=== PATIENT | female | born 1950 | race Caucasian/White ===

== ENCOUNTER → 2018-08-09 14:00 | Outpatient (CLI) | payer MEDICARE, OTHER, SELFPAY ==
[2018-08-09 15:52] LABS: Absolute Lymphocyte Count 3.09 X10^3/ul (0.83-4.51); Absolute Neutrophil Count 2.9 X10^3/uL (2.0-7.7); Basophil# 0.07 X10^3/uL; Eosinophil# 0.28 X10^3/uL; Eosinophils% 3.9 % (0-5); Hematocrit 42.5 % (37-47); Hemoglobin 13.7 g/dl (12.0-15.0); Lymphocyte # 3.09 X10^3/ul (4.0); Lymphocyte % 43.4 % (19-41); Mean Corp Hgb Conc 32.2 g/gl (32-36); Mean Corpuscular Hgb 29.6 pg (27.0-32.0); Mean Corpuscular Volume 91.8 fL (81-99); Monocyte# 0.77 X10^3/uL; Monocyte% 10.8 % (0-10); Neutrophil % 40.8 % (47-70); Platelet Count 329 K/mm3 (150-450); RBC Distribution Width CV 13.6 % (11.6-14.6); Red Blood Count 4.63 M/mm3 (4.2-5.4); White Blood Count 7.1 K/mm3 (4.4-11.0)
[2018-08-09 16:12] LABS: POSITIVE COUNT NO; POSITIVE DIFFERENTIAL NO; POSITIVE MORPHOLOGY NO
[2018-08-09 16:17] LABS: Anion Gap 9 (5-15); BUN 12 mg/dL (7-18); BUN/Creat Ratio 14.6 RATIO (10-20); Calcium,Total 8.6 mg/dL (8.5-10.1); Chloride 106 mmol/L (98-107); Creatinine, Serum 0.82 mg/dL (0.55-1.02); EST Glomerular Filtration Rate 73 mL/min (>60); Est Glom Filt Rate - Afr Amer 89 mL/min (>60); Glucose 100 mg/dL (74-106); Potassium 3.3 mmol/L (3.5-5.1); Sodium Level 141 mmol/L (136-145); Thyroid Stim Hormone (TSH) 1.54 uIU/mL (0.358-3.74)
== END ==
PROVIDERS: Family Provider Family Medicine; PCP Family Medicine; Visit Provider Family Medicine
DX: I10 Essential (primary) hypertension (principal); F32.9 Major depressive disorder, single episode, unspecified
CPT/HCPCS: 36415; 80048; 84443; 85025

== ENCOUNTER → 2019-03-18 14:28 | Outpatient (CLI) | payer MEDICARE, OTHER, SELFPAY ==
[2019-03-18 15:31] VITALS: BMI 27.8
== END ==
PROVIDERS: Family Provider Family Medicine; PCP Family Medicine; Referring Provider Physician Assistant Surgical; Visit Provider Physician Assistant Surgical
DX: R31.9 Hematuria, unspecified (principal)
CPT/HCPCS: 87077; 87086; 87088; 87186

== ENCOUNTER → 2019-03-28 17:12 | Outpatient (CLI) | payer MEDICARE, OTHER, SELFPAY ==
[2019-03-18 15:31] VITALS: BMI 27.8
[2019-03-28 17:38] LABS: Anion Gap 8 (5-15); BUN 16 mg/dL (7-18); BUN/Creat Ratio 17.5 RATIO (10-20); Chloride 107 mmol/L (98-107); Creatinine, Serum 0.91 mg/dL (0.55-1.02); EST Glomerular Filtration Rate 65 mL/min (>60); Est Glom Filt Rate - Afr Amer 78 mL/min (>60); Glucose 130 mg/dL (74-106); Magnesium 1.8 mg/dL (1.6-2.6); Potassium 3.3 mmol/L (3.5-5.1); Sodium Level 140 mmol/L (136-145)
== END ==
PROVIDERS: Family Provider Family Medicine; PCP Family Medicine; Referring Provider Family Medicine; Visit Provider Family Medicine
DX: E87.6 Hypokalemia (principal)
CPT/HCPCS: 36415; 80048; 83735

== ENCOUNTER → 2019-05-03 14:50 | Outpatient (CLI) | payer MEDICARE, OTHER, SELFPAY ==
[2019-03-18 15:31] VITALS: BMI 27.8
[2019-05-03 17:41] LABS: Anion Gap 8 (5-15); BUN 14 mg/dL (7-18); BUN/Creat Ratio 14.9 RATIO (10-20); Calcium,Total 9.3 mg/dL (8.5-10.1); Chloride 109 mmol/L (98-107); Creatinine, Serum 0.94 mg/dL (0.55-1.02); EST Glomerular Filtration Rate 63 mL/min (>60); Est Glom Filt Rate - Afr Amer 76 mL/min (>60); Glucose 148 mg/dL (74-106); Magnesium 1.8 mg/dL (1.6-2.6); Potassium 3.7 mmol/L (3.5-5.1); Sodium Level 139 mmol/L (136-145)
== END ==
LOC: LAB.FUTURE 14:51 → BFHLAB 14:52
PROVIDERS: Family Provider Family Medicine; PCP Family Medicine; Visit Provider Family Medicine
DX: E87.6 Hypokalemia (principal)
CPT/HCPCS: 36415; 80048; 83735

== ENCOUNTER 2019-12-22 12:12 | Emergency (ER) | payer MEDICARE, OTHER, SELFPAY ==
[2019-03-18 15:31] VITALS: BMI 27.8
[2019-12-22 12:13] VITALS: BP 116/35; PULSE 101; RESP 18; TEMP 36.3; O2SAT 93; BMI 26.6
--- NOTE | 2019-12-22 12:39 | EKG12_ITS ---
Test Reason : EPIGASTRIC PAIN Blood Pressure : / mmHG Vent. Rate : 108 BPM Atrial Rate : 108 BPM P-R Int : 178 ms QRS Dur : 076 ms QT Int : 358 ms P-R-T Axes : 069 -28 054 degrees QTc Int : 479 ms Sinus tachycardia Nonspecific ST abnormality Abnormal ECG Confirmed by KAMALA NICOLAS, NATALEE ([id number]), video effects editor GIOVANNA MONCADA ([id number]) on 12/26/2019 2:03:54 PM Referred By: [facility] Confirmed By:DREW WRAY MD
--- NOTE | 2019-12-22 12:42 | ED.DCSUM_ITS ---
- ER Visit Summary Date of Service: 12/22/19 Chief Complaint: Epigastric abdominal pain History of Present Illness: The patient is a 69 F which is her epigastric abdominal pain for 6 to 8 months. Initially was intermittent and now is been constant for 1 to 2 months. Worse with eating. Worse with supine. Better upright. No change with exertion. No chest pain. No shortness of breath. No melena. No fever. She is treated with omeprazole and said it did not seem to be working as well. Due to her symptoms her primary care physician wanted her to be evaluated. She has had an upper endoscopy in the past revealing reflux. She is had some nausea with it but currently no vomiting. No diarrhea. No constipation. No fever. No weight loss. No exertional symptoms and no radiation of the pain to her arm, neck or jaw. Physical Examination: Older female no acute distress vital signs stable afebrile. HEENT exam unremarkable. Neck nontender. Lungs clear to auscultation bilaterally. Heart regular rhythm no murmur. Abdomen is soft nontender, nondistended normal bowel sounds no peritoneal signs. Specifically pressing directly in his epigastric region there is no reproducible pain. No pulsatile mass. Right upper and right lower quadrants are unremarkable. No Holman sign or McBurney's point tenderness. Patient moving all 4 extremities. Neurologically is awake alert no focal motor deficits. Test Results: EKG shows sinus tachycardia rate of 108 with no sign acute signs of MN or ischemia. He is awake 11.1. Hemoglobin 15. No bands. Chemistries patient often has low potassium is low at 2.9 she is not been able to take her potassium replacement she stated because of abdominal pain. Gap normal at 6 creatinine 1.1. Liver liver enzymes normal. Lipase normal 150. Troponin normal. Emergency Department Course and Treatment: History and exam are consistent with gastritis. She will be treated with GI cocktail and Protonix. I am going screening labs but think there is a high likelihood that they will be unremarkable. Clinically I do not think this is cardiac nor do I think it is pancreatitis or gallbladder related. Repeat exam she is doing well at 4:10 PM. Abdomen is benign. Treatment Plan: Patient be discharged to home. I will write her for Protonix. She can follow-up with her primary care physician. She knows to restart and make sure she is taking her potassium. She will be given a dose of K-Dur in the emergency department. Disposition: Discharge Impression: Acute epigastric abdominal pain Acute gastritis This note was generated with [employer] dictation software. It may contain incorrect words, spelling, and punctuation that were not noted in review of the chart prior to signing ED Disposition - Plan for ED Patient: Referrals: Colby Noble MD [Primary Care Provider] -
[2019-12-22] MEDS: Mag Hydrox/Al Hydrox/Simeth 30 ML UDC PO (12:58)
[2019-12-22] MEDS: Pantoprazole Sodium 40 MG Tablet PO (12:58)
[2019-12-22 13:04] LABS: Absolute Lymphocyte Count 4.62 X10^3/uL (0.83-4.51); Basophil# 0.08 X10^3/uL; Basophil% 0.7 % (0-1); Eosinophil# 0.37 X10^3/uL; Eosinophils% 3.3 % (0-5); Hematocrit 49.2 % (37-47); Hemoglobin 15.8 g/dL (12.0-15.0); Lymphocyte # 4.62 X10^3/ul (4.0); Lymphocyte % 41.6 % (19-41); Mean Corp Hgb Conc 32.1 g/dL (32-36); Mean Corpuscular Hgb 29.8 pg (27.0-32.0); Mean Corpuscular Volume 92.7 fL (81-99); Mean Platelet Vol. 11.3 fl (6.2-12.0); Monocyte# 1.04 X10^3/uL; Monocyte% 9.4 % (0-10); NRBC Flagged by Analyzer 0 % (0-5); Neutrophil # 4.97 X10^3/uL (2.7-7.7); Neutrophil % 44.8 % (47-70); Platelet Count 339 K/mm3 (150-450); RBC Distribution Width CV 12.5 % (11.6-14.6); RBC Distribution Width SD 42.5 fl (35.1-43.9); Red Blood Count 5.31 M/mm3 (4.2-5.4); White Blood Count 11.1 K/mm3 (4.4-11.0)
[2019-12-22 13:17] LABS: AST(SGOT) 19 U/L (15-37); Alanine Aminotransfer ALT/SGPT 25 U/L (13-56); Albumin, Serum 3.8 g/dL (3.2-5.0); Alkaline Phosphatase 93 U/L (45-117); Anion Gap 6 (5-15); BUN 19 mg/dL (7-18); BUN/Creat Ratio 16.8 RATIO (10-20); Bilirubin, Direct 0.17 mg/dL (0.00-0.30); Calcium,Total 9.9 mg/dL (8.5-10.1); Chloride 99 mmol/L (98-107); Creatinine, Serum 1.13 mg/dL (0.55-1.02); EST Glomerular Filtration Rate 51 mL/min (>60); Est Glom Filt Rate - Afr Amer 61 mL/min (>60); Estimated Creatinine Clearance 43.37 ml/min; Globulin 4.1 g/dL (2.2-4.2); Glucose 137 mg/dL (74-106); Lipase 150 U/L (73-393); Potassium 2.9 mmol/L (3.5-5.1); Protein, Total 7.9 g/dL (6.4-8.2); Sodium Level 142 mmol/L (136-145)
[2019-12-22 14:42] VITALS: BP 99/64; PULSE 82; RESP 16; O2SAT 93
--- NOTE | 2019-12-22 16:12 | ED.DEP ---
ED Disposition - Plan for ED Patient: Disposition: Home or Assisted Living Instructions: ED Abdominal Pain Unkn Cause Fem, ED Gastritis, Hypokalemia Prescriptions: Pantoprazole Sodium [Protonix] 40 mg PO BID #30 tab Prescription Printed Referrals: Colby Noble MD [Primary Care Provider] - 3-5 Days if not improving Additional Instructions: Restarted potassium was low today at 2.9. You need to have that rechecked in 1 to 2 weeks. Start the Protonix to see if that will help you better for your gastritis which I think is the cause your pain. You can hold your current reflux medication. Follow-up with your primary care physician to ensure you are improving.
== END 2019-12-22 16:24 | disposition home or self-care (01) ==
PROVIDERS: Emergency Provider Emergency Medicine; PCP Family Medicine
DX: K29.00 Acute gastritis without bleeding (principal); K21.9 Gastro-esophageal reflux disease without esophagitis; F32.9 Major depressive disorder, single episode, unspecified; Z79.899 Other long term (current) drug therapy; Z72.0 Tobacco use
CPT/HCPCS: 80048; 80076; 83690; 84484; 85025; 93005; 99284; A4216

== ENCOUNTER → 2020-10-18 14:50 | Outpatient (CLI) | payer MEDICARE, SELFPAY ==
[2020-10-18 18:22] LABS: Anion Gap 5 (5-15); BUN 21 mg/dL (7-18); BUN/Creat Ratio 19.1 RATIO (10-20); Calcium,Total 9.7 mg/dL (8.5-10.1); Chloride 106 mmol/L (98-107); EST Glomerular Filtration Rate 52 mL/min (>60); Est Glom Filt Rate - Afr Amer 63 mL/min (>60); Glucose 178 mg/dL (74-106); Potassium 4.8 mmol/L (3.5-5.1); Sodium Level 137 mmol/L (136-145)
== END ==
LOC: MTLAB 14:54
PROVIDERS: PCP Family Medicine; Referring Provider Family Medicine; Visit Provider Family Medicine
DX: E87.6 Hypokalemia (principal)
CPT/HCPCS: 36415; 80048

== ENCOUNTER → 2020-10-29 15:07 | Outpatient (CLI) | payer MEDICARE, SELFPAY ==
[2020-10-29 17:53] LABS: Absolute Lymphocyte Count 2.51 X10^3/uL (0.83-4.51); Absolute Neutrophil Count 5.6 X10^3/uL (2.0-7.7); Basophil# 0.08 X10^3/uL; Basophil% 0.9 % (0-1); Eosinophil# 0.01 X10^3/uL; Eosinophils% 0.1 % (0-5); Hematocrit 46.3 % (37-47); Hemoglobin 14.8 g/dL (12.0-15.0); Lymphocyte # 2.51 X10^3/ul (0.83-4.51); Lymphocyte % 28.2 % (19-41); Mean Corpuscular Hgb 30.1 pg (27.0-32.0); Mean Corpuscular Volume 94.1 fL (81-99); Mean Platelet Vol. 11.6 fl (6.2-12.0); Monocyte# 0.64 X10^3/uL; Monocyte% 7.2 % (0-10); NRBC Flagged by Analyzer 0 % (0-5); Neutrophil # 5.62 X10^3/uL (2.7-7.7); Neutrophil % 63.3 % (47-70); Platelet Count 339 K/mm3 (150-450); RBC Distribution Width CV 12.5 % (11.6-14.6); RBC Distribution Width SD 43.3 fl (35.1-43.9); Red Blood Count 4.92 M/mm3 (4.2-5.4); White Blood Count 8.9 K/mm3 (4.4-11.0)
[2020-10-29 18:08] LABS: ALB/GLOB Ratio 0.8 RATIO (0.9-2.4); AST(SGOT) 11 U/L (15-37); Alanine Aminotransfer ALT/SGPT 21 U/L (13-56); Albumin, Serum 3.3 g/dL (3.2-5.0); Alkaline Phosphatase 115 U/L (45-117); Anion Gap 6 (5-15); BUN 16 mg/dL (7-18); CPK Total, Creatine Kinase 56 U/L (26-192); CRP 6.69 mg/L (0.0-3.0); Calcium,Total 9.1 mg/dL (8.5-10.1); Chloride 105 mmol/L (98-107); Creatinine, Serum 1.33 mg/dL (0.55-1.02); EST Glomerular Filtration Rate 42 mL/min (>60); Est Glom Filt Rate - Afr Amer 51 mL/min (>60); Globulin 4.2 g/dL (2.2-4.2); Glucose 150 mg/dL (74-106); Potassium 3.1 mmol/L (3.5-5.1); Protein, Total 7.5 g/dL (6.4-8.2); Sodium Level 139 mmol/L (136-145); T4 Free Direct 0.87 ng/dL (0.76-1.46); Thyroid Stim Hormone (TSH) 1.42 uIU/mL (0.358-3.74)
[2020-10-29 18:12] LABS: Erythrocyte Sedimentation Rate 50 mm/hr (0-30)
== END ==
PROVIDERS: PCP Family Medicine; Referring Provider Family Medicine; Visit Provider Family Medicine
DX: M62.81 Muscle weakness (generalized) (principal); W19.XXXA Unspecified fall, initial encounter; H53.2 Diplopia
CPT/HCPCS: 36415; 80053; 82550; 84439; 84443; 85025; 85652; 86140

== ENCOUNTER → 2020-11-06 16:48 | Outpatient (CLI) | payer MEDICARE, SELFPAY ==
--- NOTE | 2020-11-06 17:30 | MRI_ITS ---
STUDY: MRI BRAIN WITH AND WITHOUT CONTRAST REASON FOR EXAM: Female, 70 years old. DIPLOPIA,FALLS, H/A''s, EXHAUSTION,TREMORS x 30years -- Concern for MS TECHNIQUE: Standardized multiplanar fat and water weighted pulse sequences were obtained. IV 17ml Dotarem was administered for the contrast portion of the examination. COMPARISON: None. FINDINGS: Mild atrophy and advanced nonspecific periventricular white matter disease with involvement of the corpus callosum... No mass effect or restricted diffusion. 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 Normal thalami. There is no extra-axial fluid accumulation. Mild chronic ischemic changes within the agusto Normal flow voids within the major intracranial circulation suggesting patency by spin echo criteria. Normal venous enhancement. There is no enhancing intra-axial or extra-axial abnormality. Normal sella turcica, pituitary gland, infundibular stalk, optic chiasm and hypothalamus. Normal tectal plate and pineal gland. Normal midbrain, and medulla. Normal cerebellum. Normal basal cisterns. Normal bilateral temporal bones. Normal bilateral internal auditory canals. No demonstrated orbital abnormality, within the constraints of a routine brain study. Mild mucosal thickening of left ethmoid air cells. Normal calvarium and skull base. Normal visualized soft tissue structures. Normal visualized upper cervical spine. MRI/Brain W/WO Contrast IMPRESSION: Advanced nonspecific periventricular white matter disease which in patient of this age likely represents small vessel ischemic changes however there are also findings suggestive of demyelinating disease consistent with multiple sclerosis. There are no enhancing plaques following contrast administration. Old bilateral lacunar infarcts and chronic ischemic changes within the agusto Electronically Signed: Adalberto Valle MD at 18:33 EDT , Service support ,
== END ==
PROVIDERS: PCP Family Medicine; Referring Provider Family Medicine; Visit Provider Family Medicine
DX: H53.2 Diplopia (principal); M62.81 Muscle weakness (generalized); W19.XXXA Unspecified fall, initial encounter
CPT/HCPCS: 70553; A9575

== ENCOUNTER → 2020-12-31 14:39 | Outpatient (CLI) | payer MEDICARE, SELFPAY ==
[2020-12-31 18:20] LABS: Erythrocyte Sedimentation Rate 39 mm/hr (0-30)
[2020-12-31 18:40] LABS: Anion Gap 10 (5-15); BUN 13 mg/dL (7-18); BUN/Creat Ratio 9.8 RATIO (10-20); CPK Total, Creatine Kinase 60 U/L (26-192); CRP < 2.90 mg/L (0.0-3.0); Calcium,Total 9.3 mg/dL (8.5-10.1); Chloride 104 mmol/L (98-107); Creatinine, Serum 1.33 mg/dL (0.55-1.02); EST Glomerular Filtration Rate 42 mL/min (>60); Est Glom Filt Rate - Afr Amer 50 mL/min (>60); Glucose 136 mg/dL (74-106); Sodium Level 138 mmol/L (136-145)
== END ==
PROVIDERS: PCP Family Medicine; Referring Provider Family Medicine; Visit Provider Family Medicine
DX: M32.9 Systemic lupus erythematosus, unspecified (principal); M62.81 Muscle weakness (generalized)
CPT/HCPCS: 36415; 80048; 82550; 85652; 86140